=== PATIENT | female | born 1960 | race Caucasian/White ===

== ENCOUNTER 2022-07-08 04:06 | Inpatient (IN) | payer BC ==
[2022-07-08 05:45] LABS: #Eosinphils 0.1 thou/uL (0.0-0.7); #Lymphocytes 0.7 thou/uL (1.20-3.40); #Monocytes 0.7 thou/uL (0.11-0.59); #Neutrophils 8.1 thou/uL (1.40-6.50); %Basophils 0.4 % (0.0-1.0); %Eosinophils 1.1 % (0.0-10.0); %Lymphocytes 7.2 % (21.0-51.0); %Monocytes 7.2 % (0.0-10.0); Hemoglobin 13.7 g/dL (12.0-16.0); Mean Corpuscular HGB CONC 35.8 g/dL (32.0-36.0); Mean Platelet Volume 6.9 fL (7.4-10.4); Platelet Count 297 thou/uL (130-400); RBC Distribution Width 11.3 % (11.5-14.5); White Blood Cell (WBC) Count 9.6 thou/uL (4.8-10.8)
[2022-07-08 06:08] LABS: ALT (SGPT) 23 U/L (8-55); AST (SGOT) 22 U/L (5-34); Albumin 4.3 g/dL (3.4-4.8); Alkaline Phosphatase 99 U/L (40-110); Anion Gap 14 mmol/L (10-20); BUN (Urea Nitrogen) 4 mg/dL (9.8-20.1); Bilirubin, Total 0.8 mg/dL (0.2-1.2); Calc. Creatinine Clearance 0 mL/min (70-130); Calcium 9.1 mg/dL (7.8-10.44); Carbon Dioxide 20 mmol/L (23-31); Chloride 76 mmol/L (98-107); Estimated GFR 86; Globulin 3.5 g/dL (2.4-3.5); Glucose 121 mg/dL (80-115); Potassium 3.3 mmol/L (3.5-5.1); Protein, Total 7.8 g/dL (5.8-8.1)
[2022-07-08 06:13] LABS: Sodium 107 mmol/L (136-145)
[2022-07-08] MEDS ORDERED: Ketorolac Tromethamine 30 MG/ML VIAL ONE (06:36)
[2022-07-08] MEDS ORDERED: Morphine 4 MG/ML VIAL ONE (06:36)
[2022-07-08] MEDS ORDERED: Ondansetron PF 4 MG/2 ML Vial ONE ×3 (06:36→11:23)
[2022-07-08 07:00] LABS: Bilirubin Negative (Negative); Blood, Urine Negative (Negative); Clarity Clear (Clear); Glucose, Urine (Dipstick) Normal (Negative); Ketone, Urine 40 mg/dL (Negative); Leukocyte Negative Leu/uL (Negative); Nitrite Negative (Negative); Protein, Urine (Dipstick) Negative (Neg-Trace); Specific Gravity, Urine 1.019 (1.002-1.036); Urobilinogen Normal mg/dL (Less than 2); pH, Urine 6.5 (5.0-9.0)
[2022-07-08 07:13] LABS: Acetaminophen Less than 10.0 mcg/mL (10.0-30.0); Alcohol Less than 10 mg/dL (Less than 10); Salicylate Less than 8.0 mg/dL (15.0-30.0)
[2022-07-08] MEDS ORDERED: Ondansetron PF 4 MG/2 ML Vial IVP PRN (08:22)
[2022-07-08] MEDS ORDERED: Lorazepam 1 MG TAB PO PRN (08:26)
[2022-07-08] MEDS ORDERED: Lorazepam 2 MG/ML VIAL IM PRN (08:26)
[2022-07-08] MEDS ORDERED: Electrolyte Replacement Protocol 1 EACH FS SCH (08:30)
[2022-07-08 08:50] LABS: Hemoglobin A1c 4.7 % (4.0-6.0)
[2022-07-08] MEDS ORDERED: Amlodipine 5 MG TAB PO SCH (09:15)
[2022-07-08] MEDS ORDERED: Potassium Chloride 40 MEQ in Premix Bag 1 BAG IVPB SCH (09:15)
[2022-07-08 09:28] LABS: Sodium 109 mmol/L (136-145)
[2022-07-08 09:32] LABS: Anion Gap 15 mmol/L (10-20); BUN (Urea Nitrogen) 5 mg/dL (9.8-20.1); Calc. Creatinine Clearance 0 mL/min (70-130); Calcium 8.3 mg/dL (7.8-10.44); Carbon Dioxide 19 mmol/L (23-31); Chloride 80 mmol/L (98-107); Estimated GFR 98; Glucose 125 mg/dL (80-115); Potassium 3.7 mmol/L (3.5-5.1)
[2022-07-08] MEDS ORDERED: Lorazepam 1 MG TAB ONE (09:42)
[2022-07-08] MEDS ORDERED: Folic Acid 1 MG TAB ONE (09:42)
[2022-07-08] MEDS ORDERED: CEFAZOLIN 2 GM in Sodium Chloride 0.9% 100 ML IVPB SCH (10:06)
[2022-07-08] MEDS ORDERED: cefTRIAXone\\ROCEPHIN 1 GM in Sodium Chloride 0.9% 100 ML IVPB SCH (10:15)
[2022-07-08 10:22] LABS: SARS-CoV-2 NAA Rapid Test Not Detected (NotDetected)
[2022-07-08 10:36] LABS: Sodium 110 mmol/L (136-145)
[2022-07-08] MEDS ORDERED: Potassium Chloride 20 MEQ/100 ML PREMIX BAG ONE ×2 (10:48→12:37)
[2022-07-08] MEDS ORDERED: Amlodipine 5 MG TAB ONE (10:50)
[2022-07-08] MEDS ORDERED: Metoprolol Tartrate 50 MG TAB ONE (10:50)
[2022-07-08] MEDS: Lorazepam 1 MG TAB PO SCH ×4 (11:02→23:48)
[2022-07-08] MEDS: Thiamine HCl 200 MG/2 ML VIAL SLOW IVP SCH (11:02)
[2022-07-08] MEDS: Potassium Chloride 20 MEQ in Premix Bag 1 BAG IVPB SCH ×2 (11:03→12:42)
[2022-07-08] MEDS: Metoprolol Tartrate 50 MG TAB PO SCH ×2 (11:03→21:43)
[2022-07-08] MEDS: Multivit, Therapeutic 1 TAB PO SCH (11:03)
[2022-07-08] MEDS: Folic Acid 1 MG TAB PO SCH (11:03)
[2022-07-08] MEDS: busPIRone HCl 10 MG TAB PO SCH ×2 (11:21→21:43)
[2022-07-08] MEDS: Losartan 25 MG TAB PO SCH (11:22)
[2022-07-08 11:57] LABS: Sodium 109 mmol/L (136-145)
[2022-07-08 12:07] LABS: Magnesium 1.6 mg/dL (1.6-2.6)
[2022-07-08] MEDS ORDERED: Magnesium 2 GM/50 ML(in water) 4 GM in Premix Bag 1 BAG IVPB SCH (12:15)
[2022-07-08] MEDS ORDERED: CEFAZOLIN 1 GM VIAL ONE (12:37)
[2022-07-08] MEDS: CEFAZOLIN 1 GM in Sodium Chloride 0.9% 100 ML IVPB SCH ×2 (13:01→23:21)
[2022-07-08] MEDS ORDERED: Magnesium Sulfate In Water 4 GM in Premix Bag 1 BAG IVPB SCH (14:00)
[2022-07-08 14:32] LABS: Creatinine, Urine 89.58 mg/dL (47-110)
[2022-07-08 14:45] LABS: Sodium 108 mmol/L (136-145)
[2022-07-08 16:58] LABS: Sodium 108 mmol/L (136-145)
[2022-07-08 18:01] VITALS: BMI 26.6
[2022-07-08 20:40] LABS: Anion Gap 13 mmol/L (10-20); BUN (Urea Nitrogen) 6 mg/dL (9.8-20.1); Calc. Creatinine Clearance 101 mL/min (70-130); Calcium 8.4 mg/dL (7.8-10.44); Carbon Dioxide 20 mmol/L (23-31); Chloride 83 mmol/L (98-107); Estimated GFR 97; Glucose 108 mg/dL (80-115); Potassium 4.1 mmol/L (3.5-5.1)
[2022-07-08 20:48] LABS: Sodium 112 mmol/L (136-145)
[2022-07-09 04:27] LABS: ALT (SGPT) 21 U/L (8-55); AST (SGOT) 23 U/L (5-34); Albumin 3.9 g/dL (3.4-4.8); Alkaline Phosphatase 80 U/L (40-110); Bilirubin, Direct 0.3 mg/dL (0.1-0.3); Bilirubin, Total 0.8 mg/dL (0.2-1.2); Protein, Total 6.9 g/dL (5.8-8.1)
[2022-07-09 04:29] LABS: #Eosinphils 0.1 thou/uL (0.0-0.7); #Lymphocytes 0.9 thou/uL (1.20-3.40); #Neutrophils 5.7 thou/uL (1.40-6.50); %Eosinophils 1.9 % (0.0-10.0); %Lymphocytes 11.7 % (21.0-51.0); %Monocytes 12.6 % (0.0-10.0); %Neutrophils 73.8 % (42.0-75.0); Hemoglobin 12.8 g/dL (12.0-16.0); Mean Corpuscular HGB CONC 35.8 g/dL (32.0-36.0); Mean Corpuscular Hemoglobin 36.8 pg (27.0-31.0); Mean Platelet Volume 7.2 fL (7.4-10.4); Platelet Count 261 thou/uL (130-400); RBC Distribution Width 11.3 % (11.5-14.5); Red Blood Cell (RBC) Count 3.49 mill/uL (4.20-5.40); White Blood Cell (WBC) Count 7.8 thou/uL (4.8-10.8)
[2022-07-09 04:36] LABS: Anion Gap 12 mmol/L (10-20); BUN (Urea Nitrogen) 6 mg/dL (9.8-20.1); Calc. Creatinine Clearance 97 mL/min (70-130); Calcium 8.9 mg/dL (7.8-10.44); Carbon Dioxide 22 mmol/L (23-31); Cardiac Risk 3.4 (Less than 4.5); Chloride 90 mmol/L (98-107); Cholesterol 206 mg/dl (< 200 Desired); Estimated GFR 92; Glucose 96 mg/dL (80-115); HDL Cholesterol 60 mg/dL (>60 Neg Risk); LDL Cholesterol, Calculated 129 mg/dL; Magnesium 2.5 mg/dL (1.6-2.6); Potassium 3.9 mmol/L (3.5-5.1); Sodium 120 mmol/L (136-145); Triglycerides 84 mg/dL (Less than 150)
[2022-07-09] MEDS: Acetaminophen 325 MG TAB PO PRN (05:37)
[2022-07-09] MEDS: Lorazepam 1 MG TAB PO SCH ×4 (05:37→23:00)
[2022-07-09] MEDS: CEFAZOLIN 1 GM in Sodium Chloride 0.9% 100 ML IVPB SCH ×2 (06:00→15:50)
[2022-07-09 07:10] LABS: Sodium 119 mmol/L (136-145)
[2022-07-09] MEDS ORDERED: Dextrose 5% in Water 1,000 ML IV SCH ×2 (08:00→10:05)
[2022-07-09] MEDS ORDERED: Lorazepam 1 MG TAB PO PRN (08:26)
[2022-07-09] MEDS: Folic Acid 1 MG TAB PO SCH (08:46)
[2022-07-09] MEDS: busPIRone HCl 10 MG TAB PO SCH ×2 (08:46→21:17)
[2022-07-09] MEDS: Multivit, Therapeutic 1 TAB PO SCH (08:46)
[2022-07-09] MEDS: Metoprolol Tartrate 50 MG TAB PO SCH ×2 (08:46→21:17)
[2022-07-09] MEDS: Losartan 25 MG TAB PO SCH (08:46)
[2022-07-09] MEDS: Enoxaparin Sodium 40 MG/0.4 ML SYRINGE SC SCH (08:47)
[2022-07-09] MEDS: Thiamine HCl 200 MG/2 ML VIAL SLOW IVP SCH (08:47)
[2022-07-09] MEDS: Amlodipine 5 MG TAB PO SCH (08:47)
[2022-07-09 09:28] LABS: Sodium 120 mmol/L (136-145)
[2022-07-09 13:40] LABS: Sodium 119 mmol/L (136-145)
[2022-07-09] MEDS: Dextrose 5% in Water 1,000 ML IV SCH ×2 (17:11→21:20)
[2022-07-09 21:24] LABS: Sodium 120 mmol/L (136-145)
[2022-07-10] MEDS: Acetaminophen 325 MG TAB PO PRN ×3 (03:56→20:19)
[2022-07-10] MEDS: Lorazepam 1 MG TAB PO SCH ×2 (04:06→12:07)
[2022-07-10 04:12] LABS: #Eosinphils 0.2 thou/uL (0.0-0.7); #Lymphocytes 1.3 thou/uL (1.20-3.40); #Monocytes 0.9 thou/uL (0.11-0.59); #Neutrophils 4.3 thou/uL (1.40-6.50); %Basophils 0.7 % (0.0-1.0); %Eosinophils 3.4 % (0.0-10.0); %Lymphocytes 18.6 % (21.0-51.0); %Monocytes 13.2 % (0.0-10.0); %Neutrophils 64.2 % (42.0-75.0); Hemoglobin 11.5 g/dL (12.0-16.0); Mean Corpuscular HGB CONC 35.7 g/dL (32.0-36.0); Mean Corpuscular Hemoglobin 37.2 pg (27.0-31.0); Mean Platelet Volume 7.4 fL (7.4-10.4); Platelet Count 239 thou/uL (130-400); RBC Distribution Width 11.4 % (11.5-14.5); Red Blood Cell (RBC) Count 3.09 mill/uL (4.20-5.40); White Blood Cell (WBC) Count 6.7 thou/uL (4.8-10.8)
[2022-07-10 04:48] LABS: Anion Gap 14 mmol/L (10-20); BUN (Urea Nitrogen) 7 mg/dL (9.8-20.1); Calc. Creatinine Clearance 105 mL/min (70-130); Calcium 8.8 mg/dL (7.8-10.44); Carbon Dioxide 19 mmol/L (23-31); Chloride 92 mmol/L (98-107); Estimated GFR 100; Glucose 125 mg/dL (80-115); Potassium 3.8 mmol/L (3.5-5.1); Sodium 121 mmol/L (136-145)
[2022-07-10] MEDS ORDERED: Magnesium 2 GM/50 ML(in water) 2 GM in Premix Bag 1 BAG IVPB SCH (05:00)
[2022-07-10] MEDS ORDERED: cefTRIAXone\\ROCEPHIN 1 GM in Sodium Chloride 0.9% 100 ML IVPB SCH (08:00)
[2022-07-10] MEDS ORDERED: Lorazepam 1 MG TAB PO PRN (08:26)
[2022-07-10 08:37] LABS: Sodium 122 mmol/L (136-145)
[2022-07-10] MEDS: Losartan 25 MG TAB PO SCH (08:38)
[2022-07-10] MEDS: Enoxaparin Sodium 40 MG/0.4 ML SYRINGE SC SCH (08:38)
[2022-07-10] MEDS: busPIRone HCl 10 MG TAB PO SCH ×2 (08:38→20:20)
[2022-07-10] MEDS: Lorazepam 0.5 MG TAB PO SCH ×3 (08:39→20:20)
[2022-07-10] MEDS: Metoprolol Tartrate 50 MG TAB PO SCH ×2 (08:39→20:19)
[2022-07-10] MEDS: Multivit, Therapeutic 1 TAB PO SCH (08:39)
[2022-07-10] MEDS: Amlodipine 5 MG TAB PO SCH (08:39)
[2022-07-10] MEDS: Folic Acid 1 MG TAB PO SCH (08:39)
[2022-07-10] MEDS: Thiamine HCl 200 MG/2 ML VIAL SLOW IVP SCH (08:44)
[2022-07-10 11:27] LABS: Sodium 123 mmol/L (136-145)
[2022-07-10 16:46] LABS: Sodium 123 mmol/L (136-145)
[2022-07-11] MEDS: Lorazepam 0.5 MG TAB PO SCH (02:22)
[2022-07-11 05:52] LABS: #Eosinphils 0.2 thou/uL (0.0-0.7); #Lymphocytes 1.1 thou/uL (1.20-3.40); #Monocytes 0.7 thou/uL (0.11-0.59); #Neutrophils 3.8 thou/uL (1.40-6.50); %Basophils 0.2 % (0.0-1.0); %Eosinophils 4.2 % (0.0-10.0); %Lymphocytes 19.5 % (21.0-51.0); %Neutrophils 64.1 % (42.0-75.0); Hemoglobin 11.2 g/dL (12.0-16.0); Mean Corpuscular HGB CONC 31.6 g/dL (32.0-36.0); Mean Corpuscular Hemoglobin 33.1 pg (27.0-31.0); Mean Platelet Volume 7.2 fL (7.4-10.4); Platelet Count 296 thou/uL (130-400); RBC Distribution Width 11.4 % (11.5-14.5); Red Blood Cell (RBC) Count 3.39 mill/uL (4.20-5.40); White Blood Cell (WBC) Count 5.8 thou/uL (4.8-10.8)
[2022-07-11 06:27] LABS: Anion Gap 14 mmol/L (10-20); BUN (Urea Nitrogen) 10 mg/dL (9.8-20.1); Calc. Creatinine Clearance 103 mL/min (70-130); Carbon Dioxide 21 mmol/L (23-31); Chloride 95 mmol/L (98-107); Estimated GFR 99; Glucose 94 mg/dL (80-115); Magnesium 2.1 mg/dL (1.6-2.6); Potassium 4.2 mmol/L (3.5-5.1); Sodium 126 mmol/L (136-145)
[2022-07-11] MEDS: Folic Acid 1 MG TAB PO SCH (08:31)
[2022-07-11] MEDS: Enoxaparin Sodium 40 MG/0.4 ML SYRINGE SC SCH (08:31)
[2022-07-11] MEDS: busPIRone HCl 10 MG TAB PO SCH ×2 (08:31→21:06)
[2022-07-11] MEDS: Amlodipine 5 MG TAB PO SCH (08:31)
[2022-07-11] MEDS: Losartan 25 MG TAB PO SCH (08:31)
[2022-07-11] MEDS: Multivit, Therapeutic 1 TAB PO SCH (08:32)
[2022-07-11] MEDS: Metoprolol Tartrate 50 MG TAB PO SCH ×2 (08:32→21:06)
[2022-07-11] MEDS: Acetaminophen 325 MG TAB PO PRN ×2 (09:09→15:37)
[2022-07-11] MEDS: Thiamine 100 MG TAB PO SCH (09:09)
[2022-07-11] MEDS: Lorazepam 0.5 MG TAB PO PRN ×2 (09:09→21:08)
[2022-07-11] MEDS ORDERED: Polyethylene Glycol 3350 17 GM Packet PO PRN (10:39)
[2022-07-11] MEDS ORDERED: Docusate 100 MG CAP PO PRN (10:39)
[2022-07-11 16:41] LABS: Anion Gap 15 mmol/L (10-20); Carbon Dioxide 22 mmol/L (23-31); Chloride 95 mmol/L (98-107); Potassium 4.5 mmol/L (3.5-5.1); Sodium 127 mmol/L (136-145)
[2022-07-12 06:43] LABS: Anion Gap 11 mmol/L (10-20); BUN (Urea Nitrogen) 13 mg/dL (9.8-20.1); Calc. Creatinine Clearance 100 mL/min (70-130); Carbon Dioxide 23 mmol/L (23-31); Chloride 98 mmol/L (98-107); Estimated GFR 99; Glucose 91 mg/dL (80-115); Potassium 4.3 mmol/L (3.5-5.1); Sodium 128 mmol/L (136-145)
[2022-07-12] MEDS: Losartan 25 MG TAB PO SCH (08:48)
[2022-07-12] MEDS: Enoxaparin Sodium 40 MG/0.4 ML SYRINGE SC SCH (08:48)
[2022-07-12] MEDS: Folic Acid 1 MG TAB PO SCH (08:48)
[2022-07-12] MEDS: Metoprolol Tartrate 50 MG TAB PO SCH (08:49)
[2022-07-12] MEDS: Multivit, Therapeutic 1 TAB PO SCH (08:49)
[2022-07-12] MEDS: busPIRone HCl 10 MG TAB PO SCH (08:49)
[2022-07-12] MEDS: Amlodipine 5 MG TAB PO SCH (08:49)
[2022-07-12] MEDS: Thiamine 100 MG TAB PO SCH (08:58)
[2022-07-12] MEDS ORDERED: traZODone HCl 50 MG TAB PO PRN (14:03)
[2022-07-12 16:26] VITALS: BP 139/76; TEMP 97.8
== END 2022-07-12 17:15 | disposition home or self-care (01) | DRG 641 ==
LOC: ERS 04:06 → SUATTDRO 04:06 → ERHOLD 08:22 → IMCU/EMU 17:39 → NEURO 07-10 18:14 → T4-B 07-11 14:20
PROVIDERS: ADMIT Family Medicine; ATTEND Family Medicine
DX: E87.1 Hypo-osmolality and hyponatremia (principal); F10.239 Alcohol dependence with withdrawal, unspecified; N12 Tubulo-interstitial nephritis, not specified as acute or chronic; F41.9 Anxiety disorder, unspecified; E86.0 Dehydration; E87.6 Hypokalemia; R25.2 Cramp and spasm; E83.42 Hypomagnesemia; N18.2 Chronic kidney disease, stage 2 (mild); I12.9 Hypertensive chronic kidney disease with stage 1 through stage 4 chronic kidney disease, or unspecified chronic kidney disease; D63.8 Anemia in other chronic diseases classified elsewhere; D63.1 Anemia in chronic kidney disease; K59.00 Constipation, unspecified; Z20.822 Contact with and (suspected) exposure to COVID-19; Z88.1 Allergy status to other antibiotic agents; Z98.51 Tubal ligation status
CPT/HCPCS: 36415; 70450; 71045; 74176; 80048; 80053; 80061; 80076; 80307; 81003; 82570; 83036; 83735; 83930; 83935; 84300; 84443; 84540; 85025; 93005; 96374; 96375; J0690; J0696; J1650; J1885; J2270; J2405; J3411; J3475; J3480; J3490; J7070

== ENCOUNTER 2023-12-04 14:42 | Outpatient (CLI) | payer BC | END 2023-12-04 14:43 | disposition home or self-care (01) | LOC: BICMAMMO 14:42 | PROVIDERS: ATTEND Family Medicine | DX: Z13.820 Encounter for screening for osteoporosis (principal); Z78.0 Asymptomatic menopausal state; M81.0 Age-related osteoporosis without current pathological fracture | CPT/HCPCS: 77080 ==